=== PATIENT | female | born 1995 | race Caucasian/White ===

== ENCOUNTER 2016-10-04 15:29 | Emergency (ER) | payer MEDICAID ==
[2016-10-04] MEDS ORDERED: SODIUM CHLORIDE 0.9% 1,000 ML ONE (20:10)
[2016-10-04] MEDS ORDERED: ONDANSETRON 4 MG VIAL ONE (20:10)
== END 2016-10-04 21:53 | disposition home or self-care (01) ==
LOC: ER 15:29
DX: R11.2 Nausea with vomiting, unspecified (principal); F17.210 Nicotine dependence, cigarettes, uncomplicated
CPT/HCPCS: 36415; 80053; 81003; 83690; 84703; 85025; 96361; 96374

== ENCOUNTER 2016-10-18 19:18 | Emergency (ER) | payer OTHER, MEDICAID ==
[2016-10-18] MEDS ORDERED: ONDANSETRON 4 MG VIAL ONE (21:44)
[2016-10-18] MEDS ORDERED: Meclizine HCl 25 MG TAB ONE (21:44)
[2016-10-18] MEDS ORDERED: SODIUM CHLORIDE 0.9% 1,000 ML ONE (21:44)
[2016-10-18] MEDS ORDERED: DILAUDID 1 MG/ML AMP ONE (22:07)
== END 2016-10-18 23:15 | disposition home or self-care (01) ==
LOC: ER 19:18
DX: H81.393 Other peripheral vertigo, bilateral (principal); H81.23 Vestibular neuronitis, bilateral; S06.0X0A Concussion without loss of consciousness, initial encounter; S32.19XA Other fracture of sacrum, initial encounter for closed fracture
CPT/HCPCS: 36415; 80053; 81003; 85025; 96361; 96374; 96375

== ENCOUNTER 2016-10-24 15:58 | Emergency (ER) | payer MEDICAID | END 2016-10-24 19:28 | disposition home or self-care (01) | LOC: ER 15:58 | DX: S90.31XA Contusion of right foot, initial encounter (principal); Y04.2XXA Assault by strike against or bumped into by another person, initial encounter; S76.011A Strain of muscle, fascia and tendon of right hip, initial encounter; F17.210 Nicotine dependence, cigarettes, uncomplicated ==